=== PATIENT | female | born 1985 | race African-American/Black ===

== ENCOUNTER 2020-11-25 22:36 | Emergency (ER) | payer SELFPAY ==
[2020-11-25 23:46] LABS: Absolute Lymphocytes (CBC) 1.9 K/uL (0.7-4.9); Basophils % 0.4 % (0-1.3); Hematocrit 39.4 % (36.0-45.0); Lymphocytes % 24.8 % (15.3-44.8); Protime INR 0.97; RBC Red Blood Cell Count 4.46 M/uL (3.86-4.86)
[2020-11-26 00:30] LABS: ALT/SGPT 23 U/L (12-78); AST/SGOT 12 U/L (15-37); Albumin 3.2 g/dL (3.4-5.0); BUN Blood Urea Nitrogen 15 mg/dL (7-18); Bicarbonate 26 mmol/L (21-32); Bilirubin Direct < 0.1 mg/dL (0-0.2); Bilirubin Total 0.2 mg/dL (0.2-1.0); Glucose Level 135 mg/dL (74-106); Magnesium 2.1 mg/dL (1.8-2.4); NT PRO-BNP 21 pg/mL (<125); Protein, Total 6.8 g/dL (6.4-8.2); Sodium Level 141 mmol/L (136-145); Troponin (Emerg Dept Use Only) < 0.02 ng/mL (0.0-0.045)
[2020-11-26 00:36] LABS: Alkaline Phosphatase ND U/L (45-117)
--- NOTE | 2020-11-26 01:07 | EDPHYS ---
Physician Documentation [facility] Name: Noemi Lieberman Age: 35 yrs Sex: Female : 1985 Arrival Date: 11/25/2020 Time: 22:39 Bed 19 Private MD: ROSA MARIA Physician Luke Echavarria HPI: 11/25 23:55 This 35 yrs old Black Female presents to ER via Ambulatory with complaints of High keshav Blood Pressure. 23:55 The patient has elevated blood pressure and discovered this at home. Onset: The keshav symptoms/episode began/occurred yesterday. Modifying factors: The symptoms are aggravated by activity, The symptoms are alleviated by remaining still. Associated signs and symptoms: The patient has no apparent associated signs or symptoms. The patient has experienced similar episodes in the past, a few times. 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 - Social history:: Smoking status: unknown. - Family history:: not pertinent. ROS: 23:55 Constitutional: Negative for fever, chills, and weight loss, Eyes: Negative for injury, keshav pain, redness, and discharge, ENT: Negative for injury, pain, and discharge, Neck: Negative for injury, pain, and swelling, Cardiovascular: Negative for chest pain, palpitations, and edema, Respiratory: Negative for shortness of breath, cough, wheezing, and pleuritic chest pain, Abdomen/GI: Negative for abdominal pain, nausea, vomiting, diarrhea, and constipation, Back: Negative for injury and pain, : Negative for injury, bleeding, discharge, and swelling, MS/Extremity: Negative for injury and deformity, Skin: Negative for injury, rash, and discoloration, Neuro: Negative for headache, weakness, numbness, tingling, and seizure, Psych: Negative for depression, anxiety, suicide ideation, homicidal ideation, and hallucinations, Allergy/Immunology: Negative for hives, rash, and allergies, Endocrine: Negative for neck swelling, polydipsia, polyuria, polyphagia, and marked weight changes, Hematologic/Lymphatic: Negative for swollen nodes, abnormal bleeding, and unusual bruising. Exam: 23:55 Constitutional: This is a well developed, well nourished patient who is awake, alert, keshav and in no acute distress. Head/Face: Normocephalic, atraumatic. Eyes: Pupils equal round and reactive to light, extra-ocular motions intact. Lids and lashes normal. Conjunctiva and sclera are non-icteric and not injected. Cornea within normal limits. Periorbital areas with no swelling, redness, or edema. ENT: Nares patent. No nasal discharge, no septal abnormalities noted. Tympanic membranes are normal and external auditory canals are clear. Oropharynx with no redness, swelling, or masses, exudates, or evidence of obstruction, uvula midline. Mucous membranes moist. Neck: Trachea midline, no thyromegaly or masses palpated, and no cervical lymphadenopathy. Supple, full range of motion without nuchal rigidity, or vertebral point tenderness. No Meningismus. Chest/axilla: Normal chest wall appearance and motion. Nontender with no deformity. No lesions are appreciated. Cardiovascular: Regular rate and rhythm with a normal S1 and S2. No gallops, murmurs, or rubs. Normal PMI, no JVD. No pulse deficits. Respiratory: Lungs have equal breath sounds bilaterally, clear to auscultation and percussion. No rales, rhonchi or wheezes noted. No increased work of breathing, no retractions or nasal flaring. Abdomen/GI: Soft, non-tender, with normal bowel sounds. No distension or tympany. No guarding or rebound. No evidence of tenderness throughout. Back: No spinal tenderness. No costovertebral tenderness. Full range of motion. Skin: Warm, dry with normal turgor. Normal color with no rashes, no lesions, and no evidence of cellulitis. MS/ Extremity: Pulses equal, no cyanosis. Neurovascular intact. Full, normal range of motion. Neuro: Awake and alert, GCS 15, oriented to person, place, time, and situation. Cranial nerves II-XII grossly intact. Motor strength 5/5 in all extremities. Sensory grossly intact. Cerebellar exam normal. Normal gait. Psych: Awake, alert, with orientation to person, place and time. Behavior, mood, and affect are within normal limits. 11/26 00:01 ECG was reviewed by the Attending Physician. [facility] Vital Signs: 11/25 22:57 BP 126 / 96; Pulse 69; Resp 18; Temp 98.5(TE); Pulse Ox 99% on R/A; Weight 53.98 kg; dm5 Height 5 ft. 5 in. (165.10 cm); Pain 0/10; 23:50 BP 119 / 77; Pulse 60; Resp 17; Pulse Ox 100% on R/A; mg2 11/26 01:52 BP 123 / 83; Pulse 61; Resp 18; Temp 98; Pulse Ox 98% on R/A; Pain 0/10; mg2 11/25 22:57 Body Mass Index 19.80 (53.98 kg, 165.10 cm) dm5 MDM: 11/25 23:06 Patient medically screened. [facility] 23:57 Data reviewed: vital signs, nurses notes, lab test result(s), EKG, radiologic studies, keshav plain films. Data interpreted: air sampling and monitoring: rate is 60 beats/min, rhythm is regular. Test interpretation: by ED physician or midlevel provider: ECG, plain radiologic studies. Counseling: I had a detailed discussion with the patient and/or guardian regarding: the historical points, exam findings, and any diagnostic results supporting the discharge/admit diagnosis, lab results, radiology results, the need for outpatient follow up, for definitive care, a superintendent container terminal, a family practitioner. 11/25 23:07 Order name: Basic Metabolic Panel [facility] 11/25 23:07 Order name: CBC with Diff [facility] 11/25 23:07 Order name: LFT's [facility] 11/25 23:07 Order name: Magnesium [facility] 11/25 23:07 Order name: NT PRO-BNP; Complete Time: 01:06 [facility] 11/25 23:07 Order name: PT-INR; Complete Time: 23:54 [facility] 11/25 23:07 Order name: Troponin (emerg Dept Use Only); Complete Time: 01:06 [facility] 11/25 23:08 Order name: Basic Metabolic Panel; Complete Time: 01:06 [facility] 11/25 23:08 Order name: CBC with Automated Diff; Complete Time: 00:25 [facility] 11/25 23:08 Order name: Liver (Hepatic) Function; Complete Time: 01:06 [facility] 11/25 23:08 Order name: Magnesium; Complete Time: 01:06 [facility] 11/26 01:26 Order name: Urine Dipstick--Ancillary (enter results) [facility] 11/26 01:26 Order name: Urine --Ancillary (enter results) [facility] 11/26 01:26 Order name: Urine Dipstick-Ancillary [facility] 11/25 23:07 Order name: XRAY Chest (1 view) [facility] 11/25 23:07 Order name: EKG; Complete Time: 23:08 [facility] 11/25 23:07 Order name: Cardiac monitoring; Complete Time: 23:49 [facility] 11/25 23:07 Order name: EKG - Nurse/Tech; Complete Time: 23:48 [facility] 11/25 23:07 Order name: IV Saline Lock; Complete Time: 23:48 [facility] 11/25 23:07 Order name: Labs collected and sent; Complete Time: 23:48 [facility] 11/25 23:07 Order name: O2 Per Protocol; Complete Time: 23:48 [facility] 11/25 23:07 Order name: O2 Sat Monitoring; Complete Time: 23:48 [facility] 11/25 23:09 Order name: Urine Dipstick-Ancillary (obtain specimen); Complete Time: 01:31 [facility] 11/26 01:26 Order name: Urine --Ancillary [facility] 11/26 01:39 Order name: Urine Culture [facility] 11/26 01:39 Order name: Urine Culture EDMS EC/18 00:01 Rate is 62 beats/min. Rhythm is regular. QRS Dieterich is Normal. MA interval is normal. QRS keshav interval is normal. QT interval is normal. No Q waves. T waves are Normal. No ST changes noted. Clinical impression: NSR w/ Non-specific ST/T Changes and No evidence of ischemia. Interpreted by me. Reviewed by me. Administered Medications: 01:51 Drug: Bactrim (160 mg-800 mg (DS) 1 tablet Route: PO; mg2 01:51 Follow up: Response: No adverse reaction; Medication administered at discharge. mg2 Disposition: 11/26/20 01:06 Discharged to Home. Impression: Essential (primary) hypertension, Urinary tract infection, site not specified. - Condition is Stable. - Discharge Instructions: Hypertension, Urinary Tract Infection, Adult, Urinary Tract Infection, Adult, Dlxz-ls-Plah, Hypertension, Iqey-fa-Wwvo, How to Take Your Blood Pressure, Mips-lr-Pfsk, Aspirin and Your Heart, Managing Your Hypertension. - Prescriptions for Bactrim DS 800- 160 mg Oral Tablet - take 1 tablet by ORAL route every 12 hours for 7 days; 14 tablet. - Medication Reconciliation Form, Thank You Letter, Antibiotic Education, Prescription Opioid Use form. - Follow up: Private Physician; When: 2 - 3 days; Reason: Recheck today's complaints, Continuance of care, Re-evaluation by your physician. Follow up: Kevin Mcarthur; When: 2 - 3 days; Reason: Recheck today's complaints, Continuance of care, Re-evaluation by your physician. - Problem is new. - Symptoms have improved. Signatures: Dispatcher [employer] Trini Sanchez, RN RN dm5 Luke Echavarria MD MD cha Gardose, Michele, RN RN mg2 Corrections: (The following items were deleted from the chart) 01:40 01:06 11/26/2020 01:06 Discharged to Home. Impression: Essential (primary) keshav hypertension. Condition is Stable. Discharge Instructions: Hypertension, Hypertension, Kujn-vj-Dyis, How to Take Your Blood Pressure, Vzon-nq-Oryd, Aspirin and Your Heart, Managing Your Hypertension. Forms are Medication Reconciliation Form, Thank You Letter, Antibiotic Education, Prescription Opioid Use. Follow up: Private Physician; When: 2 - 3 days; Reason: Recheck today's complaints, Continuance of care, Re-evaluation by your physician. Follow up: Kevin Mcarthur; When: 2 - 3 days; Reason: Recheck today's complaints, Continuance of care, Re-evaluation by your physician. Problem is new. Symptoms have improved. keshav 01:52 01:40 11/26/2020 01:06 Discharged to Home. Impression: Essential (primary) mg2 hypertension; Urinary tract infection, site not specified. Condition is Stable. Discharge Instructions: Hypertension, Hypertension, Jzeg-ky-Vhgn, How to Take Your Blood Pressure, Ecqt-az-Rlvx, Aspirin and Your Heart, Managing Your Hypertension. Forms are Medication Reconciliation Form, Thank You Letter, Antibiotic Education, Prescription Opioid Use. Follow up: Private Physician; When: 2 - 3 days; Reason: Recheck today's complaints, Continuance of care, Re-evaluation by your physician. Follow up: Kevin Mcarthur; When: 2 - 3 days; Reason: Recheck today's complaints, Continuance of care, Re-evaluation by your physician. Problem is new. Symptoms have improved. keshav
--- NOTE | 2020-11-26 01:07 | ER ---
Nurse's Notes [facility] Name: Noemi Lieberman Age: 35 yrs Sex: Female : 1985 Arrival Date: 11/25/2020 Time: 22:39 Bed 19 Private MD: Diagnosis: Essential (primary) hypertension;Urinary tract infection, site not specified Presentation: 11/25 22:57 Chief complaint: Patient states: blood pressure high on Monday. pt lethargic in triage dm5 states she has had a hard time staying awake for months. BP in triage is 126/96. Coronavirus screen: Client denies travel out of the [place] in the last 14 days. At this time, the client does not indicate any symptoms associated with coronavirus-19. Ebola Screen: Patient negative for fever greater than or equal to 101.5 degrees Fahrenheit, and additional compatible Ebola Virus Disease symptoms Patient denies exposure to infectious person. Patient denies travel to an Ebola-affected area in the 21 days before illness onset. No symptoms or risks identified at this time. Initial Sepsis Screen: Does the patient meet any 2 criteria? No. Patient's initial sepsis screen is negative. Does the patient have a suspected source of infection? No. Patient's initial sepsis screen is negative. Risk Assessment: Do you want to hurt yourself or someone else? Patient reports no desire to harm self or others. Onset of symptoms was November 23, 2020. 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 - Social history:: Smoking status: unknown. - Family history:: not pertinent. Screenin:49 Abuse screen: Denies threats or abuse. Denies injuries from another. Nutritional mg2 screening: No deficits noted. Tuberculosis screening: No symptoms or risk factors identified. Fall Risk IV access (20 points). Assessment: 23:49 General: Appears in no apparent distress. comfortable, Behavior is calm, cooperative, mg2 seems sleepy/drowsy. Pain: Denies pain. Neuro: Level of Consciousness is awake, obeys commands, lethargic. Cardiovascular: Capillary refill < 3 seconds Patient's skin is warm and dry. Respiratory: Airway is patent Respiratory effort is even, unlabored, Respiratory pattern is regular, symmetrical. GI: No signs and/or symptoms were reported involving the gastrointestinal system. : No signs and/or symptoms were reported regarding the genitourinary system. EENT: No signs and/or symptoms were reported regarding the EENT system. Derm: Skin is intact, is healthy with good turgor, Skin is pink, warm \T\ dry. normal. Musculoskeletal: Circulation, motion, and sensation intact. Capillary refill < 3 seconds. Vital Signs: 22:57 BP 126 / 96; Pulse 69; Resp 18; Temp 98.5(TE); Pulse Ox 99% on R/A; Weight 53.98 kg; dm5 Height 5 ft. 5 in. (165.10 cm); Pain 0/10; 23:50 BP 119 / 77; Pulse 60; Resp 17; Pulse Ox 100% on R/A; mg2 11/26 01:52 BP 123 / 83; Pulse 61; Resp 18; Temp 98; Pulse Ox 98% on R/A; Pain 0/10; mg2 11/25 22:57 Body Mass Index 19.80 (53.98 kg, 165.10 cm) dm5 ED Course: 11/25 22:39 Patient arrived in ED. cl3 23:00 Triage completed. dm5 23:00 Arm band placed on right wrist. Patient placed in an exam room, on a stretcher. dm5 23:06 Luke Echavarria MD is Attending Physician. keshav 23:07 Maged Ornelas, JAME is Primary Nurse. mg2 23:50 Patient has correct armband on for positive identification. mg2 23:50 No provider procedures requiring assistance completed. Inserted saline lock: 20 gauge mg2 in left forearm, using aseptic technique. Blood collected. 23:57 XRAY Chest (1 view) In Process Unspecified. EDMS 11/26 01:06 Kevin Mcarthur MD is Referral Physician. keshav 01:52 IV discontinued, intact, bleeding controlled, No redness/swelling at site. Pressure mg2 dressing applied. Administered Medications: 01:51 Drug: Bactrim (160 mg-800 mg (DS) 1 tablet Route: PO; mg2 01:51 Follow up: Response: No adverse reaction; Medication administered at discharge. mg2 Outcome: 01:06 Discharge ordered by . keshav 01:52 Discharged to home ambulatory. mg2 01:52 Condition: stable 01:52 Discharge instructions given to patient, Instructed on discharge instructions, follow up and referral plans. medication usage, Demonstrated understanding of instructions, follow-up care, medications, Prescriptions given X 1. 01:52 Patient left the ED. mg2 Signatures: Dispatcher [employer] EDTrini Sanchez RN RN dm5 Luke Echavarria MD MD cha Gardose, Michele, RN RN mg2 [facility] cl3
[2020-11-26 01:57] LABS: Urine Blood NEGATIVE (NEG); Urine Glucose NEGATIVE (NEG); Urine Protein NEGATIVE (NEG)
[2020-11-26] MEDS ORDERED: SMZ./TMP. 800/160 MG TABLET ONE (01:59)
[2020-11-26 02:02] VITALS: BP 123/83; TEMP 98; O2SAT 98
--- NOTE | 2020-11-26 08:49 | RAD REPORT ---
EXAM DESCRIPTION: RAD - Chest Single View - 11/25/2020 11:57 pm CLINICAL HISTORY: COUGH Chest pain. COMPARISON: No comparisons FINDINGS: Portable technique limits examination quality. The lungs are grossly clear. The heart is normal in size. No displaced fractures. IMPRESSION: No acute intrathoracic process suspected.
== END 2020-11-26 01:52 | disposition home or self-care (01) ==
LOC: ER 22:36
DX: I10 Essential (primary) hypertension (principal); N39.0 Urinary tract infection, site not specified
CPT/HCPCS: 36415; 71045; 80048; 80076; 81003; 81025; 83735; 83880; 84484; 85025; 85610; 87086; 87088; 93005; 99284

== ENCOUNTER 2021-04-02 21:06 | Emergency (ER) | payer SELFPAY ==
[2021-04-02 22:44] LABS: Absolute Lymphocytes (CBC) 3.4 K/uL (0.7-4.9); Basophils % 0.7 % (0-1.3); Hematocrit 36.6 % (36.0-45.0); Lymphocytes % 42.8 % (15.3-44.8); MPV 7.7 fL (7.6-11.3); RBC Red Blood Cell Count 4.17 M/uL (3.86-4.86)
[2021-04-02 22:45] LABS: Protime INR 0.99
[2021-04-02 22:57] LABS: ALT/SGPT 58 U/L (12-78); AST/SGOT 40 U/L (15-37); Albumin 3.3 g/dL (3.4-5.0); Alkaline Phosphatase 44 U/L (45-117); BUN Blood Urea Nitrogen 18 mg/dL (7-18); Bicarbonate 27 mmol/L (21-32); Bilirubin Direct < 0.1 mg/dL (0-0.2); Bilirubin Total 0.1 mg/dL (0.2-1.0); Glucose Level 106 mg/dL (74-106); Magnesium 1.8 mg/dL (1.8-2.4); NT PRO-BNP 213 pg/mL (<125); Potassium 3.4 mmol/L (3.5-5.1); Protein, Total 6.6 g/dL (6.4-8.2); Sodium Level 141 mmol/L (136-145); Troponin (Emerg Dept Use Only) < 0.02 ng/mL (0.0-0.045)
[2021-04-03 00:32] LABS: Urine Blood Trace-intact (Negative); Urine Glucose Negative (Negative); Urine Protein Negative (Negative); Urine Specific Gravity 1.015 (1.005-1.030); Urine pH 6.5 (5.0-7.0)
[2021-04-03 00:35] LABS: Urine Specific Gravity/Preg 1.015 (1.005-1.030)
[2021-04-03 00:47] LABS: Barbiturates NEGATIVE (NEGATIVE); Benzodiazepines NEGATIVE (NEGATIVE); Cocaine NEGATIVE (NEGATIVE); METHAMPHETAM NEGATIVE (NEGATIVE); Methadone NEGATIVE (NEGATIVE); Opiates NEGATIVE (NEGATIVE); Phencyclidine POSITIVE (NEGATIVE); THC Cannibis POSITIVE (NEGATIVE)
--- NOTE | 2021-04-03 02:28 | EDPHYS ---
Physician Documentation [facility] Name: Noemi Lieberman Age: 35 yrs Sex: Female : 1985 Arrival Date: 04/02/2021 Time: 21:06 Bed 15 Private MD: ED Physician Eleazar Ann HPI: 04/02 23:50 This 35 yrs old Black Female presents to ER via Ambulatory with complaints of Chest mh7 Pressure, Numbness Of Arm - L. 23:50 The patient or guardian reports chest pain that is located primarily in the anterior mh7 chest wall, left. The pain radiates to the left arm, left back. 23:50 Associated signs and symptoms: Pertinent negatives: abdominal pain, cough, diaphoresis, mh7 dizziness, headache, lower extremity pain, lower extremity swelling, lightheadedness, nausea, near syncope, palpitations, recent travel, shortness of breath, syncope, vomiting. 23:50 The chest pain is described as sharp. Duration: The patient or guardian reports mh7 multiple episodes, that are intermittent, that wax and wane, the episodes last approximately 10 second(s). Modifying factors: The symptoms are alleviated by nothing. the symptoms are aggravated by nothing. Severity of pain: At its worst the pain was moderate today, in the emergency department the pain has resolved and did so just prior to arrival. 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 - Social history:: Smoking status: Patient reports the use of cigarette tobacco products, smokes one-half pack cigarettes per day, Patient uses street drugs, marijuana. ROS: 23:50 Constitutional: Negative for fever, chills, and weight loss, Eyes: Negative for injury, mh7 pain, redness, and discharge, ENT: Negative for injury, pain, and discharge, Neck: Negative for injury, pain, and swelling, Respiratory: Negative for shortness of breath, cough, wheezing, and pleuritic chest pain, Abdomen/GI: Negative for abdominal pain, nausea, vomiting, diarrhea, and constipation, Back: Negative for injury and pain, : Negative for injury, bleeding, discharge, and swelling, Skin: Negative for injury, rash, and discoloration. 23:50 Psych: Negative for depression, anxiety, suicide ideation, homicidal ideation, and hallucinations, Allergy/Immunology: Negative for hives, rash, and allergies, Endocrine: Negative for neck swelling, polydipsia, polyuria, polyphagia, and marked weight changes, Hematologic/Lymphatic: Negative for swollen nodes, abnormal bleeding, and unusual bruising. 23:50 Neuro: Negative for altered mental status, dizziness, gait disturbance, headache, hearing loss, loss of consciousness, seizure activity, speech changes, syncope, near syncope, tinnitus, tremor, visual changes, weakness. Exam: 23:50 Constitutional: This is a well developed, well nourished patient who is awake, alert, mh7 and in no acute distress. Head/Face: Normocephalic, atraumatic. Eyes: Pupils equal round and reactive to light, extra-ocular motions intact. Lids and lashes normal. Conjunctiva and sclera are non-icteric and not injected. Cornea within normal limits. Periorbital areas with no swelling, redness, or edema. Neck: Trachea midline, no thyromegaly or masses palpated, and no cervical lymphadenopathy. Supple, full range of motion without nuchal rigidity, or vertebral point tenderness. No Meningismus. Chest/axilla: Normal chest wall appearance and motion. Nontender with no deformity. No lesions are appreciated. Cardiovascular: Regular rate and rhythm with a normal S1 and S2. No gallops, murmurs, or rubs. Normal PMI, no JVD. No pulse deficits. Respiratory: Lungs have equal breath sounds bilaterally, clear to auscultation and percussion. No rales, rhonchi or wheezes noted. No increased work of breathing, no retractions or nasal flaring. Abdomen/GI: Soft, non-tender, with normal bowel sounds. No distension or tympany. No guarding or rebound. No evidence of tenderness throughout. Back: No spinal tenderness. No costovertebral tenderness. Full range of motion. Skin: Warm, dry with normal turgor. Normal color with no rashes, no lesions, and no evidence of cellulitis. MS/ Extremity: Pulses equal, no cyanosis. Neurovascular intact. Full, normal range of motion. Neuro: Awake and alert, GCS 15, oriented to person, place, time, and situation. Cranial nerves II-XII grossly intact. Motor strength 5/5 in all extremities. Sensory grossly intact. Cerebellar exam normal. Normal gait. Psych: Awake, alert, with orientation to person, place and time. Behavior, mood, and affect are within normal limits. Vital Signs: 22:01 BP 145 / 97; Pulse 66; Resp 20; Temp 98.2(O); Pulse Ox 100% on R/A; Weight 69.4 kg (R); kg Height 5 ft. 6 in. (167.64 cm); Pain 0/10; 23:53 BP 125 / 98; Pulse 65; Resp 16; Pulse Ox 100% on R/A; zb 04/03 02:38 BP 138 / 97; Pulse 58; Resp 16 S; Pulse Ox 98% on R/A; bb 04/02 22:01 Body Mass Index 24.69 (69.40 kg, 167.64 cm) kg MDM: 02:24 Differential diagnosis: acute myocardial infarction, acute pericarditis, anxiety, mh7 coronary artery disease chest wall pain, congestive heart failure costochondritis, myocarditis, pericarditis, pneumonia, pneumothorax. HEART Score: History: Slightly Suspicious (0), ECG: Non specific repolarization disturbance / LBTB / PM (1), Age: < or = 45 years (0), Risk Factors: No Risk Factors Known (0), Troponin: < or = 1 x Normal Limit (0), Total Score = 0. Data reviewed: vital signs, nurses notes, lab test result(s), cardiac enzymes, CBC, electrolytes, urinalysis, urine drug screen, EKG, radiologic studies, plain films. Data interpreted: Pulse oximetry: on room air is 100 %. Interpretation: normal. Counseling: I had a detailed discussion with the patient and/or guardian regarding: the historical points, exam findings, and any diagnostic results supporting the discharge/admit diagnosis, lab results, radiology results, the need for outpatient follow up, to return to the emergency department if symptoms worsen or persist or if there are any questions or concerns that arise at home. Response to treatment: the patient's symptoms have resolved after treatment, the patient's blood pressure is in an acceptable range, mental status has returned to baseline, the patient no longer shows bradycardia, the patient is not short of breath, the patient is not tachycardic, the patient's pain is gone, the patient's temperature has normalized. 02:28 Patient medically screened. 7 04/02 22:13 Order name: Basic Metabolic Panel; Complete Time: :32 kg 04/02 22:13 Order name: CBC with Diff; Complete Time: :32 kg 04/02 22:13 Order name: LFT's; Complete Time: : kg 04/02 22:13 Order name: Magnesium; Complete Time: : kg 04/02 22:13 Order name: NT PRO-BNP; Complete Time: : kg 04/02 22:13 Order name: PT-INR; Complete Time: : kg 04/02 22:13 Order name: Troponin (emerg Dept Use Only); Complete Time: : kg 04/02 22:13 Order name: XRAY Chest (1 view) kg 04/02 22:13 Order name: EKG; Complete Time: 22:14 kg 04/03 00:01 Order name: UDS; Complete Time: 00:49 mh7 04/03 00:02 Order name: D-Dimer; Complete Time: 00:37 mh7 04/03 00:32 Order name: Urine Dipstick-Ancillary EDMS 04/03 00:32 Order name: Urine --Ancillary (enter results); Complete Time: 00:37 tt3 04/03 01:07 Order name: Troponin (emerg Dept Use Only); Complete Time: 02:02 bb 04/02 22:13 Order name: Cardiac monitoring; Complete Time: 00:00 kg 04/02 22:13 Order name: EKG - Nurse/Tech; Complete Time: 22:13 kg 04/02 22:13 Order name: Labs collected and sent; Complete Time: 22:25 kg 04/02 22:13 Order name: O2 Per Protocol; Complete Time: :25 kg 04/02 22:13 Order name: O2 Sat Monitoring; Complete Time: 00:00 kg 04/03 00:01 Order name: Urine Dipstick-Ancillary (obtain specimen); Complete Time: 00:33 [facility] 04/03 00:01 Order name: Urine Test (obtain specimen); Complete Time: 00:33 [facility] Administered Medications: No medications were administered Disposition Summary: 04/03/21 02:28 Discharge Ordered Location: Home [facility] Problem: new [facility] Symptoms: have improved [facility] Condition: Stable [facility] Diagnosis - Chest pain, unspecified [facility] - Cannabis abuse [facility] - PCP Abuse [facility] Followup: [facility] - With: Private Physician - When: 1 - 2 days - Reason: Worsening of condition, Recheck today's complaints, Continuance of care, Re-evaluation by your physician Discharge Instructions: - Discharge Summary Sheet [facility] - Nonspecific Chest Pain, Adult [facility] - Cannabis Use Disorder [facility] Forms: - Medication Reconciliation Form [facility] - Thank You Letter [facility] - Antibiotic Education [facility] - Prescription Opioid Use [facility] Signatures: Dispatcher [employer] EDEleazar Rushing MD MD [facility] Prudence Whelan RN RN kg Corrections: (The following items were deleted from the chart) 02:29 04/02 22:13 IV Saline Lock ordered. kg bb
--- NOTE | 2021-04-03 02:28 | ER ---
Nurse's Notes [facility] Name: Noemi Lieberman Age: 35 yrs Sex: Female : 1985 Arrival Date: 04/02/2021 Time: 21:06 Bed 15 Private MD: Diagnosis: Chest pain, unspecified;Cannabis abuse;PCP Abuse Presentation: 04/02 22:01 Chief complaint: Patient states: Chest pain and pressure that radiates to left arm and kg my left arm and finger goes numb. It's happened three times since last night. Coronavirus screen: Client denies travel out of the [place] in the last 14 days. At this time, unable to obtain information related to travel outside the [place] Ebola Screen: Patient negative for fever greater than or equal to 101.5 degrees Fahrenheit, and additional compatible Ebola Virus Disease symptoms Patient denies exposure to infectious person. Patient denies travel to an Ebola-affected area in the 21 days before illness onset. Initial Sepsis Screen: Does the patient meet any 2 criteria? No. Patient's initial sepsis screen is negative. Does the patient have a suspected source of infection? No. Patient's initial sepsis screen is negative. Risk Assessment: Do you want to hurt yourself or someone else? Patient reports no desire to harm self or others. Onset of symptoms was April 01, 2021. 22:01 Method Of Arrival: Ambulatory kg 22:01 Acuity: BRYON 3 kg Triage Assessment: 22:09 General: Appears in no apparent distress. Behavior is calm, cooperative, appropriate kg for age, quiet. Pain: Complains of pain in anterior aspect of left upper chest, left nipple and left breast. Cardiovascular: Reports chest pain. 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 - Social history:: Smoking status: Patient reports the use of cigarette tobacco products, smokes one-half pack cigarettes per day, Patient uses street drugs, marijuana. Screenin:12 Abuse screen: Denies threats or abuse. Denies injuries from another. Nutritional kg screening: No deficits noted. On. Tuberculosis screening: No symptoms or risk factors identified. Fall Risk None identified. Assessment: 22:25 Reassessment: Patient appears in no apparent distress at this time. Patient and/or ss family updated on plan of care and expected duration. Pain level reassessed. Pt is smiling and talking with staff during lab drAw. Chest XRAY obtained now and patient will be placed back in lobby to wait for exam room to become available. PT verbalizes understanding. 23:30 Reassessment: Patient appears in no apparent distress at this time. Patient and/or zb family updated on plan of care and expected duration. Pain level reassessed. Patient is alert, oriented x 3, equal unlabored respirations, skin warm/dry/pink. ECP discussing care of patient. 04/03 02:29 Reassessment: Patient is alert, oriented x 3, equal unlabored respirations, skin bb warm/dry/pink. Dr Ann at bedside for discussion of findings and recommendations pt to be discharged and follow-up with PCP as needed. Pt verbalized understanding of and agrees to plan of care discharge instructions given. 02:35 Reassessment: Patient and/or family updated on plan of care and expected duration. Pain ea level reassessed. Patient is alert, oriented x 3, equal unlabored respirations, skin warm/dry/pink. Patient states feeling better. Vital Signs: 04/02 22:01 BP 145 / 97; Pulse 66; Resp 20; Temp 98.2(O); Pulse Ox 100% on R/A; Weight 69.4 kg (R); kg Height 5 ft. 6 in. (167.64 cm); Pain 0/10; 23:53 BP 125 / 98; Pulse 65; Resp 16; Pulse Ox 100% on R/A; zb 04/03 02:38 BP 138 / 97; Pulse 58; Resp 16 S; Pulse Ox 98% on R/A; bb 04/02 22:01 Body Mass Index 24.69 (69.40 kg, 167.64 cm) kg ED Course: 04/02 21:06 Patient arrived in ED. ds1 22:06 Triage completed. kg 22:09 Arm band placed on right wrist. kg 22:12 Patient has correct armband on for positive identification. kg 22:25 Initial lab(s) drawn, by me, sent to lab. Patient maintains SpO2 saturation greater ss than 95% on room air. 22:56 XRAY Chest (1 view) In Process Unspecified. EDNY 23:25 Jessica Lynn, RN is Primary Nurse. ana m 23:29 Eleazar Ann MD is Attending Physician. [facility] 04/03 02:31 No provider procedures requiring assistance completed. Patient did not have IV access bb during this emergency room visit. Administered Medications: No medications were administered Outcome: 02:28 Discharge ordered by . [facility] 02:32 Discharged to Rehab Facility bb 02:32 Condition: stable 02:32 Discharge instructions given to patient, Instructed on discharge instructions, follow up and referral plans. Demonstrated understanding of instructions, follow-up care. 02:38 Patient left the ED. bb Signatures: Dispatcher [employer] [facility] Camryn Steiner ds1 Veronica Irby RN RN Tianna Giraldo RN RN ss Antunez, Elena, RN RN ea Holmes, Maurice, MD MD [facility] Jessica Lynn, Prudence Rodriguez RN, RN RN kg
[2021-04-03 02:46] VITALS: TEMP 98.2
[2021-04-03 02:50] VITALS: BP 138/97; O2SAT 98
--- NOTE | 2021-04-03 04:51 | RAD REPORT ---
EXAM DESCRIPTION: Pavel Single View04/02/2021 10:56 pm CLINICAL HISTORY: Chest pain COMPARISON: November 2020 FINDINGS: The lungs appear clear of acute infiltrate. The heart is normal size IMPRESSION: No acute abnormalities displayed
== END 2021-04-03 02:38 | disposition home or self-care (01) ==
LOC: ER 21:06
DX: F12.10 Cannabis abuse, uncomplicated (principal); F16.10 Hallucinogen abuse, uncomplicated; F41.8 Other specified anxiety disorders; F17.210 Nicotine dependence, cigarettes, uncomplicated
CPT/HCPCS: 36415; 71045; 80048; 80076; 80307; 81003; 81025; 83735; 83880; 84484; 85025; 85379; 85610; 99284